=== PATIENT | female | born 1980 | race African-American/Black ===

== ENCOUNTER 2024-11-01 21:10 | Emergency (ER) | payer MEDICAID, OTHER ==
[~2024-11-01] VITALS: Ht 170.2 cm; Wt 80.5 kg
[2024-11-01 21:37] VITALS: O2SAT 99
[2024-11-01 21:39] VITALS: BP 128/69; PULSE 58; RESP 16; TEMP 37; O2SAT 100
[2024-11-02] MEDS ORDERED: CARB-274 EACH EAR (00:37)
== END 2024-11-02 00:51 | disposition home or self-care (01) ==
LOC: ER 21:34
DX: H61.23 Impacted cerumen, bilateral (principal)
CPT/HCPCS: 69209; 99282